=== PATIENT | female | born 1945 | race Caucasian/White ===

== ENCOUNTER 2022-12-16 17:18 | Emergency (ER) | payer OTHER ==
--- OUTSIDE RECORDS SUMMARY | 2022-12-16 17:22 | XMS REPORT | Continuity of Care Document ---
:1945 Author Organization [facility] t Address [address] [place] [id number] Care Team Providers Name Role Phone [email or web address] Attending Clinician Unavailable Chad Lees Attending Clinician [email or web address] Admitting Clinician Unavailable Problems Condition Condition Condition Status Onset Resolution Last Treating Co mments Source Name Details Category Date Date Treatment Clinician Date Amnesia Amnesia Problem Active 2022-08-13 Me moria (finding) (finding) 13:47:31 l Active Teller Problem 08/13/2022 [facility] Neurology Mayes Cough Cough Problem Active 2022-08-13 Memor ia (finding) (finding) 13:47:31 l Active Jc Problem 08/13/2022 [facility] Neuro,[facility] Neurology Mayes Dementia Dementia Problem Active 2022-08-13 Memoria (disorder) (disorder) 13:47:31 l Active Teller Problem 08/13/2022 [facility] Neurology Mayes Hyperlipid Hyperlipi Problem Active 2022-08-13 Memoria emia demia 13:47:31 l (disorder) (disorder) He rmann Active Problem 08/13/2022 [facility] Neuro,[facility] Neurology Mayes Hypertensi Hypertens Problem Active 2022-08-13 Memoria ve tatiana 13:47:31 l disorder, disorder, Herm jamie systemic systemic arterial arterial (disorder) (disorder) Active Problem 08/13/2022 [facility] Ptosis of Ptosis of Problem Active 2022-08-13 Memoria eyelid eyelid 13:47:31 l (disorder) (disorder) He rmann Active Problem 08/13/2022 [facility] Neuro,[facility] Neurology Mayes Tremor Tremor Problem Active 2022-08-13 Mem oria (finding) (finding) 13:47:31 l Active Teller Problem 08/13/2022 [facility] Mayes Allergies, Adverse Reactions, Alerts Allergy Allergy Status Severity Reaction(s) Onset Inactive Treating Comm ents Source Name Type Date Date Clinician codeine codeine Active Oz Greene morphine morphine Active Memori a lamar RamirezTeller MSP-Zack MSP-Zack Active Memoria l Jc Social History Smoking Status Start Date Stop Date Source [facility]ations Ordered Filled Start Stop Current Ordering Indication Dosage Frequency Signature Comments Components Source Medication Medication Date Date Medication? Clinician (SIG) Name Name Aricept 10 Yes 10 mg = 1 Me moria mg oral 2-21 tab, PO, l tablet 20:53: Bedtime, # Calista nn 00 90 tab, 1 Refill(s), Pharmacy: [facility] #[id number], 157.48, cm, 04/05/22 14:42:00 [employer], Height, 82.727, kg, 04/05/22 14:42:00 [employer], Weight Aricept 10 2021-02 Yes 10 mg = 1 Me moria mg oral 1-21 tab, PO, l tablet 19:28: Bedtime, # Calista nn 00 30 tab, 4 Refill(s), Pharmacy: [facility] #[id number], 158.75, cm, 01/03/22 13:21:00 [employer], Height, 85, kg, 01/03/22 13:21:00 [employer], Weight Aricept 5 2021-02 Yes 5 mg = 1 Chris shola mg oral 0-05 tab, PO, l tablet 16:22: Bedtime, # Calista nn 00 30 tab, 3 Refill(s), Pharmacy: [facility] #[id number], 157.48, cm, 11/17/21 11:02:00 CDT, Height, 84.318, kg, 11/17/21 11:02:00 CDT, Weight levothyroxi Yes TAKE 1 Chris shola ne 75 mcg 8-17 TABLET (75 l (0.075 mg) 15:07: MCG TOTAL) H ermann oral tablet 00 BY MOUTH 1 (ONE) TIME EACH DAY WITH A GLASS OF WATER FOR THYROID hydrochloro Yes TAKE 1 Chris shola thiazide 25 8-17 TABLET BY l mg oral 15:07: MOUTH Teller tablet 00 EVERY DAY losartan Yes TAKE 1 Memoria 100 mg oral 8-17 TABLET l tablet 15:07: (100 MG Jc 00 TOTAL) BY MOUTH 1 (ONE) TIME EACH DAY rosuvastati Yes TAKE 1 Chris shola n 40 mg 8-17 TABLET BY l oral tablet 15:07: MOUTH AT rmann 00 BEDTIME FOR CHOLESTERO L Prevagen Yes 50 Memoria 8-17 microgram, l 15:07: PO, Daily, Jc 00 0 Refill(s) aspirin 81 Yes 324 mg = 4 M emoria mg oral 8-17 cap, PO, l capsule 15:07: Q4H, 0 Jc 00 Refill(s) Vitamin D3 Yes 0 Memoria 8-17 Refill(s) l 15:06: Teller 00 Centrum Yes PO, Daily, Chris shola Silver 8-17 0 l Women's 15:06: Refill(s) Calista nn 00 ezetimibe Yes 10 mg = 1 Mem oria 10 mg oral 8-17 tab, PO, l tablet 15:05: Daily, # Jc 00 30 tab, 0 Refill(s) montelukast Yes 10 mg = 1 M emoria 10 mg oral 8-17 tab, PO, l tablet 15:05: Bedtime, # Calista nn 00 90 tab, 0 Refill(s) pramipexole Yes 0.25 mg = M emoria 0.25 mg 8-17 1 tab, PO, l oral tablet 15:05: Bedtime, # Jc 00 60 tab, 3 Refill(s) vitamin E Yes PO, Daily, Me moria 8-17 0 l 15:05: Refill(s) Jc 00 Vital Signs Vital Name Observation Time Observation Value Comments Source Systolic (mm Hg) 2022-08-10 18:57:00 Chris rial Jc Diastolic (mm Hg) 2022-08-10 18:57:00 Mem orial Teller Heart Rate 2022-08-10 18:57:00 [facility] Height 2022-08-10 18:57:00 5 [ft_i] Memorial Jc Weight 2022-08-10 18:57:00 Memorial Teller BMI Calculated 2022-08-10 18:57:00 Memori al Jc Systolic (mm Hg) 2022-04-05 20:35:00 Chirs rial Teller Diastolic (mm Hg) 2022-04-05 20:35:00 Mem orial Teller Heart Rate 2022-04-05 20:35:00 Memorial Jc Height 2022-04-05 20:35:00 5 [ft_i] Memorial Teller Weight 2022-04-05 20:35:00 Memorial Jc BMI Calculated 2022-04-05 20:35:00 Memori al Teller Systolic (mm Hg) 2022-01-03 19:14:00 Chris rial Jc Diastolic (mm Hg) 2022-01-03 19:14:00 Mem orial Teller Heart Rate 2022-01-03 19:14:00 Memorial Teller Height 2022-01-03 19:14:00 5 [ft_i] Memorial Jc Weight 2022-01-03 19:14:00 Memorial Teller BMI Calculated 2022-01-03 19:14:00 Memori al Teller Systolic (mm Hg) 2021-11-17 15:42:00 Chris rial Jc Diastolic (mm Hg) 2021-11-17 15:42:00 Mem orial Jc Heart Rate 2021-11-17 15:42:00 Memorial Teller Respitory Rate 2021-11-17 15:42:00 Memori al Teller Height 2021-11-17 15:42:00 157.48 cm Memorial Jc Weight 2021-11-17 15:42:00 Memorial Teller BMI Calculated 2021-11-17 15:42:00 Memori al Teller Systolic (mm Hg) 2021-09-29 14:58:00 Chris rial Teller Diastolic (mm Hg) 2021-09-29 14:58:00 Mem orial Jc Heart Rate 2021-09-29 14:58:00 Memorial Teller Respitory Rate 2021-09-29 14:58:00 Memori al Teller Height 2021-09-29 14:58:00 157.48 cm Memorial Jc Weight 2021-09-29 14:58:00 [facility] BMI Calculated 2021-09-29 14:58:00 April Finch Procedures This patient has no known procedures. Encounters Start End Encounter Admission Attending Care Care Encounter Source Date/Time Date/Time Type Type Clinicians Facility Department ID 2023-01-25 2023-01-25 Outpatient MHIE MHIE [id number] Memoria 13:15:00 13:15:00 05 lamar Greene 2022-12-11 2022-12-11 Outpatient GC_GCBZW_Ka PRIV PRIV [id number] [facility] 00:00:00 00:00:00 diyala_S [id number] Medic al 2022-08-10 2022-08-11 Outpatient MHIE MNA [id number] Memoria 19:00:00 04:59:59 Neurology 04 lamar Ramirezann 2022-08-10 2022-08-10 Outpatient SACHIN LeesMISCHER MHMISCHER [id number] 14:00:00 23:59:59 Chad 04 Roel 2022-08-10 2022-08-10 Outpatient MHIE MHIE [id number] Memoria 14:00:00 14:00:00 04 lamar Greene 2022-04-05 2022-04-06 Outpatient MHIE MNA [id number] Memoria 20:15:00 05:59:59 Neurology 03 lamar Ramirezann 2022-04-05 2022-04-05 Outpatient SACHIN LeesMISCHER MHMISCHER [id number] 14:15:00 23:59:59 Chad 03 Roel 2022-04-05 2022-04-05 Outpatient MHIE MHIE [id number] Memoria 14:15:00 14:15:00 03 lamar Greene 2022-01-03 2022-01-04 Outpatient MHIE MNA [id number] Memoria 19:00:00 05:59:59 Neurology 02 lamar Hastings Jc 2022-01-03 2022-01-03 Outpatient Yoana MISCHER MHMISCHER [id number] 13:00:00 23:59:59 Chad 02 Roel 2022-01-03 2022-01-03 Outpatient MHIE MHIE [id number] Memoria 13:00:00 13:00:00 02 lamar Jc 2021-11-17 2021-11-18 Outpatient nullFlavo MNA [id number] Memoria 15:30:00 04:59:59 r Neurology 01 lamar Mayes Jc 2021-11-17 2021-11-[address] [facility] [id number] 10:30:00 23:59:59 Chad 01 Roel 2021-11-17 2021-11-17 Outpatient MHIE IE [id number] Memoria 10:30:00 10:30:00 01 lamar Jc 2021-09-29 2021-09-30 Outpatient nullFlavo MNA [id number] Memoria 14:30:00 04:59:59 r Neurology 00 lamar Darling Greene 2021-09-29 2021-09-[address] [facility] [id number] 09:30:00 23:59:59 Chad 00 Roel 2021-09-29 2021-09-29 Outpatient MHIE IE [id number] Memoria 09:30:00 09:30:00 00 lamar Greene Results Test Description Test Time Test Comments Results Result Comments Source ANEMIA STUDY 2021-11-17 19:35:00 Test Item Value Reference Range Interpretation Comme nts Vitamin B12 Lvl (test code = Vitamin B12 Lvl) [id number] [id number] 19:35:00 Test Item Value Reference Range Interpretation Comments Sed Rate (test code = Sed Rate) 14 [facility]
[2022-12-16] MEDS ORDERED: ONDANSETRON 4 MG/2 ML VIAL ONE (18:12)
[2022-12-16] MEDS ORDERED: NA CHLORIDE 0.9% 500 ML ONE (18:13)
[2022-12-16 18:18] LABS: Absolute Lymphocytes (CBC) 0.6 K/uL (0.7-4.9); Hematocrit 47.1 % (36.0-45.0); Lymphocytes % 4.2 % (15.3-44.8); MCV 92.2 fL (80-100); MPV 8.5 fL (7.6-11.3); Platelets 227 thou/uL (152-406); RBC Red Blood Cell Count 5.11 M/uL (3.86-4.86)
--- NOTE | 2022-12-16 18:22 | RAD REPORT ---
EXAM DESCRIPTION: Alvarez Single View12/16/2022 6:10 pm CLINICAL HISTORY: Cough COMPARISON: none FINDINGS: Marked scoliosis. The lungs appear clear of acute infiltrate. The heart may be borderline enlarged IMPRESSION: No acute abnormalities displayed
[2022-12-16 18:34] LABS: Albumin 3.7 g/dL (3.4-5.0); Bilirubin Total 0.8 mg/dL (0.2-1.0); Potassium 3.7 mEq/L (3.5-5.1); Protein, Total 8.2 g/dL (6.4-8.2); Troponin High Sensitivity 9.3 pg/mL (<58.9)
--- NOTE | 2022-12-16 20:35 | EDPHYS ---
Physician Documentation [facility] Name: Naz Llanos Age: 77 yrs Sex: Female : 1945 Arrival Date: 12/16/2022 Time: 17:18 Bed 14 Private MD: ED Physician Darline Russo HPI: 12/16 17:33 This 77 yrs old Female presents to ER via Unassigned with complaints of nausea and cp3 vomiting, medication reaction. 17:33 Patient is a 77-year-old female who presents to the ED secondary to nausea and vomiting cp3 after mixing up some of her medications around the same bile. Patient unsure which medicine she took but since this afternoon patient does have 5-6 episodes of nausea vomiting. Patient denies fever, chills, chest pain, shortness of breath. Historical: - Allergies: 17:58 Codeine; hb 17:58 Morphine; hb 17:58 EpiPen; hb - Immunization history:: Adult Immunizations unknown. - Social history:: Smoking status: unknown. ROS: 17:33 Constitutional: Negative for fever, chills, and weight loss, Eyes: Negative for injury, cp3 pain, redness, and discharge, ENT: Negative for injury, pain, and discharge, Neck: Negative for injury, pain, and swelling, Cardiovascular: Negative for chest pain, palpitations, and edema, Respiratory: Negative for shortness of breath, cough, wheezing, and pleuritic chest pain, Back: Negative for injury and pain, : Negative for injury, bleeding, discharge, and swelling, MS/Extremity: Negative for injury and deformity, Skin: Negative for injury, rash, and discoloration, Neuro: Negative for headache, weakness, numbness, tingling, and seizure, Psych: Negative for depression, anxiety, suicide ideation, homicidal ideation, and hallucinations, Allergy/Immunology: Negative for hives, rash, and allergies, Endocrine: Negative for neck swelling, polydipsia, polyuria, polyphagia, and marked weight changes, Hematologic/Lymphatic: Negative for swollen nodes, abnormal bleeding, and unusual bruising, 17:33 Abdomen/GI: Positive for nausea and vomiting, Exam: 17:33 Constitutional: This is a well developed, well nourished patient who is awake, alert, cp3 and in no acute distress. Head/Face: Normocephalic, atraumatic. Eyes: Pupils equal round and reactive to light, extra-ocular motions intact. Lids and lashes normal. Conjunctiva and sclera are non-icteric and not injected. Cornea within normal limits. Periorbital areas with no swelling, redness, or edema. ENT: Nares patent. No nasal discharge, no septal abnormalities noted. Tympanic membranes are normal and external auditory canals are clear. Oropharynx with no redness, swelling, or masses, exudates, or evidence of obstruction, uvula midline. Mucous membranes moist. Neck: Trachea midline, no thyromegaly or masses palpated, and no cervical lymphadenopathy. Supple, full range of motion without nuchal rigidity, or vertebral point tenderness. No Meningismus. Chest/axilla: Normal chest wall appearance and motion. Nontender with no deformity. No lesions are appreciated. Cardiovascular: Regular rate and rhythm with a normal S1 and S2. No gallops, murmurs, or rubs. Normal PMI, no JVD. No pulse deficits. Respiratory: Lungs have equal breath sounds bilaterally, clear to auscultation and percussion. No rales, rhonchi or wheezes noted. No increased work of breathing, no retractions or nasal flaring. Abdomen/GI: Soft, non-tender, with normal bowel sounds. No distension or tympany. No guarding or rebound. No evidence of tenderness throughout. Back: No spinal tenderness. No costovertebral tenderness. Full range of motion. Skin: Warm, dry with normal turgor. Normal color with no rashes, no lesions, and no evidence of cellulitis. MS/ Extremity: Pulses equal, no cyanosis. Neurovascular intact. Full, normal range of motion. Neuro: Awake and alert, GCS 15, oriented to person, place, time, and situation. Cranial nerves II-XII grossly intact. Motor strength 5/5 in all extremities. Sensory grossly intact. Cerebellar exam normal. Normal gait. Psych: Awake, alert, with orientation to person, place and time. Behavior, mood, and affect are within normal limits. Vital Signs: 17:55 BP 174 / 88; Pulse 96; Resp 18; Temp 98.9(O); Pulse Ox 98% on R/A; Weight 81.65 kg; hb Height 5 ft. 1 in. ; Pain 8/10; 18:00 BP 180 / 87; Pulse 92; Resp 18; Pulse Ox 96% on 2 lpm NC; db 18:30 BP 185 / 86; Pulse 90; Resp 16; Pulse Ox 96% on 2 lpm NC; db 19:00 BP 166 / 93; Pulse 96; Resp 20; Pulse Ox 95% on 2 lpm NC; km8 20:05 BP 159 / 84; Pulse 99; Resp 22; Pulse Ox 92% on R/A; km8 20:30 BP 146 / 78; Pulse 96; Resp 20; Pulse Ox 93% on R/A; km8 17:55 Body Mass Index 34.01 (81.65 kg, 154.94 cm) hb 17:55 Pain Scale: Adult hb MDM: 17:28 Patient medically screened. [facility] 12/16 17:40 Order name: CBC with Diff [facility] 12/16 20:14 Interpretation: Normal except: WBC 13.30; RBC 5.11; HGB 15.9; HCT 47.1; MCV 92.2; MCH cp3 31.1; MCHC 33.7; PLT 227; RDW 13.9; MPV 8.5; SAUL% 92.8; LYM% 4.2; MN% 2.5; EOSINOPHIL % 0.1; BASO% 0.4; NEUT A 12.3; LYMA 0.6; MNA 0.3; EOSA 0.0; BASOA 0.0. 12/16 17:40 Order name: CMP; Complete Time: 20:11 [facility] 12/16 20:15 Interpretation: NA 138; K 3.7; CL 104; CO2 28; ANION GAP 9.7; GLUC 152; BUN 16; CRE cp3 1.05; GFR 54; AST 30; ALT 27; ALK 80; BILIT 0.8; CA 9.6; TP 8.2; ALB 3.7; GLOB 4.5; A/G 0.8. 12/16 17:40 Order name: Lipase; Complete Time: 20:11 [facility] 12/16 20:15 Interpretation: LIP 30. [facility] 12/16 17:40 Order name: Basic Metabolic Panel [facility] 12/16 17:40 Order name: Troponin HS; Complete Time: 20:11 [facility] 12/16 20:15 Interpretation: Troponin HS 9.3. [facility] 12/16 17:40 Order name: XRAY Chest (1 view); Complete Time: 18:27 3 12/16 17:40 Order name: EKG; Complete Time: 17:41 3 12/16 17:40 Order name: IV Saline Lock; Complete Time: 18:17 3 12/16 17:40 Order name: Labs collected and sent; Complete Time: 18:17 cp3 12/16 17:40 Order name: Cardiac monitoring; Complete Time: 18:17 3 12/16 17:40 Order name: EKG - Nurse/Tech; Complete Time: 18:52 3 12/16 17:40 Order name: O2 Per Protocol; Complete Time: 18:17 cp3 12/16 17:40 Order name: O2 Sat Monitoring; Complete Time: 18:17 3 Administered Medications: 08:10 Drug: Ondansetron IVP 4 mg IVP once; over 2 minutes Route: IVP; Site: left antecubital; db 20:14 Follow up: Response: No adverse reaction [facility] 18:10 Drug: NS 0.9% IV 500 ml IV at bolus once Route: IV; Rate: bolus; Site: left antecubital;db 20:14 Follow up: IV Status: Completed infusion; IV Intake: 500ml 8 Disposition Summary: 12/16/22 20:34 Discharge Ordered Notes: Location: Home cp3 Condition: Stable cp3 Diagnosis - Nausea with vomiting, unspecified cp3 Followup: cp3 - With: Orestes Miramontes DO - When: - Reason: Recheck today's complaints Discharge Instructions: - Discharge Summary Sheet cp3 - Nausea, Adult cp3 Forms: - Medication Reconciliation Form cp3 - Thank You Letter cp3 - Antibiotic Education cp3 - Prescription Opioid Use cp3 - Patient Portal Instructions cp3 - Leadership Thank You Letter cp3 Prescriptions: - Zofran 4 mg Oral Tablet - take 1 tablet ORAL route every 12 hours As needed; 20 tablet; Refills: 0, cp3 Product Selection Permitted Signatures: Dispatcher [employer] Darline Nobles MD MD 3 Gia Ash, RN RN Alisa Yañez, RN RN Rakel Fernández RN RN km8
--- NOTE | 2022-12-16 20:35 | ER ---
Nurse's Notes [facility] Name: Naz Llanos Age: 77 yrs Sex: Female : 1945 Arrival Date: 12/16/2022 Time: 17:18 Bed 14 Private MD: Diagnosis: Nausea with vomiting, unspecified Presentation: 12/16 17:55 Chief complaint: EMS states: reports she accidentally took her AM and PM meds hb this morning, then had N/V all day. SBP 180, HR 90s, T98.8. NSR w/RBB on 12 lead, 20 LAC. Coronavirus screen: At this time, the client does not indicate any symptoms associated with coronavirus-19. Ebola Screen: No symptoms or risks identified at this time. Initial Sepsis Screen: Does the patient meet any 2 criteria? No. Patient's initial sepsis screen is negative. Does the patient have a suspected source of infection? No. Patient's initial sepsis screen is negative. Risk Assessment: Do you want to hurt yourself or someone else? Patient reports no desire to harm self or others. Onset of symptoms was December 16, 2022. 17:55 Method Of Arrival: [facility] hb 17:55 Acuity: SHENG 3 hb Triage Assessment: 18:00 General: Appears in no apparent distress. comfortable, Behavior is cooperative, drowsy. db 18:00 Neuro: Level of Consciousness is awake, obeys commands, Oriented to person, place, db time, situation. Respiratory: Airway is patent Respiratory effort is even, unlabored, Respiratory pattern is regular, symmetrical. Historical: - Allergies: 17:58 Codeine; hb 17:58 Morphine; hb 17:58 EpiPen; hb - Immunization history:: Adult Immunizations unknown. - Social history:: Smoking status: unknown. Screenin:15 [facility] ED Fall Risk Assessment (Adult) History of falling in the last 3 months, db including since admission Yes- single mechanical fall (1 pt) Confusion or Disorientation No (0 pts) Intoxicated or Sedated Yes (3 pts) Impaired Gait No (0 pts) Mobility Assist Device Used No (0 pt) Altered Elimination No (0 pt) Score/Fall Risk Level 3 or more points = High Risk Oriented to surroundings, Maintained a safe environment. Abuse screen: Denies threats or abuse. Denies injuries from another. Nutritional screening: No deficits noted. Tuberculosis screening: No symptoms or risk factors identified. Assessment: 18:00 Reassessment: Patient appears in no apparent distress at this time. Patient and/or db family updated on plan of care and expected duration. Pain level reassessed. Patient is alert, oriented x 3, equal unlabored respirations, skin warm/dry/pink. PATIENT PLACED ON NC 2L. WHEN RELAXING PT O2 DROPPED TO 88% ON RA. Pain: Denies pain. Pain: Denies pain. 18:55 Reassessment: Patient appears in no apparent distress at this time. Patient and/or db family updated on plan of care and expected duration. Pain level reassessed. Patient is alert, oriented x 3, equal unlabored respirations, skin warm/dry/pink. General: Appears in no apparent distress. comfortable, Behavior is calm, cooperative. Neuro: Level of Consciousness is awake, obeys commands, Oriented to person, place, time, situation. Respiratory: Airway is patent Respiratory effort is even, unlabored, Respiratory pattern is regular, symmetrical. 19:13 Reassessment: Patient appears in no apparent distress at this time. No changes from [facility] previously documented assessment. Patient and/or family updated on plan of care and expected duration. Pain level reassessed. Patient is alert, oriented x 3, equal unlabored respirations, skin warm/dry/pink. 20:12 Reassessment: Patient appears in no apparent distress at this time. while calling km report on another pt; this pt took all monitors and IV's out on own in order to get out of bed and go to the bathroom; pt has bleeding controlled at IV site; pt helped back to bed after using bathroom; MD notified. 20:40 Reassessment: Patient appears in no apparent distress at this time. Patient and/or km8 family updated on plan of care and expected duration. Pain level reassessed. Patient is alert, oriented x 3, equal unlabored respirations, skin warm/dry/pink. Vital Signs: 17:55 BP 174 / 88; Pulse 96; Resp 18; Temp 98.9(O); Pulse Ox 98% on R/A; Weight 81.65 kg; hb Height 5 ft. 1 in. ; Pain 8/10; 18:00 BP 180 / 87; Pulse 92; Resp 18; Pulse Ox 96% on 2 lpm NC; db 18:30 BP 185 / 86; Pulse 90; Resp 16; Pulse Ox 96% on 2 lpm NC; db 19:00 BP 166 / 93; Pulse 96; Resp 20; Pulse Ox 95% on 2 lpm NC; km8 20:05 BP 159 / 84; Pulse 99; Resp 22; Pulse Ox 92% on R/A; km8 20:30 BP 146 / 78; Pulse 96; Resp 20; Pulse Ox 93% on R/A; km8 17:55 Body Mass Index 34.01 (81.65 kg, 154.94 cm) hb 17:55 Pain Scale: Adult hb ED Course: 17:27 Patient arrived in ED. eb 17:28 Darline Russo MD is Attending Physician. cp3 17:53 Alisa Quigley, RN is Primary Nurse. db 17:58 Triage completed. hb 18:00 Arm band placed on Patient placed in an exam room. db 18:12 XRAY Chest (1 view) In Process Unspecified. EDMS 18:15 Maintain EMS IV. Dressing intact. Good blood return noted. Site clean \T\ dry. Gauge \T\ db site: 20 G L AC. 18:56 Patient has correct armband on for positive identification. Bed in low position. Call db light in reach. Side rails up X 1. Client placed on continuous cardiac and pulse oximetry monitoring. NIBP monitoring applied. Warm blanket given. 19:12 Rakel Waters, RN is Primary Nurse. km8 20:15 IV discontinued, intact, bleeding controlled, No redness/swelling at site. km8 20:17 Provided Education on: d/c teaching. km8 20:17 No provider procedures requiring assistance completed. km8 20:34 Orestes Miramontes DO is Referral Physician. cp3 Administered Medications: 08:10 Drug: Ondansetron IVP 4 mg IVP once; over 2 minutes Route: IVP; Site: left antecubital; db 20:14 Follow up: Response: No adverse reaction km8 18:10 Drug: NS 0.9% IV 500 ml IV at bolus once Route: IV; Rate: bolus; Site: left antecubital;db 20:14 Follow up: IV Status: Completed infusion; IV Intake: 500ml km8 Medication: 20:17 VIS not applicable for this client. km8 Intake: 20:14 IV: 500ml; Total: 500ml. km8 Outcome: 20:34 Discharge ordered by . cp3 20:55 Discharged to home via wheelchair, with family, km8 20:55 Condition: good 20:55 Discharge instructions given to patient, family, Instructed on discharge instructions, follow up and referral plans. medication usage, Demonstrated understanding of instructions, follow-up care, medications, Prescriptions given X 1, 20:56 Patient left the ED. km8 Signatures: Dispatcher [employer] Darline Nobles MD MD cp3 Gia Ash, RN RN Judith Espinosa Danielle, RN RN Rakel Fernández RN RN km8
[2022-12-16 21:04] LABS: Blood Morphology Comment NOT SEEN (NOT SEEN); Platelet Estimate ADEQ; White Blood Cell Scan OK (OK)
[2022-12-16 21:25] VITALS: TEMP 98.9
[2022-12-16 21:34] VITALS: BP 146/78; O2SAT 93
== END 2022-12-16 20:56 | disposition home or self-care (01) ==
LOC: ER 17:18
DX: R11.2 Nausea with vomiting, unspecified (principal); Z88.5 Allergy status to narcotic agent; Z88.8 Allergy status to other drugs, medicaments and biological substances
CPT/HCPCS: 96361; 93005; 85025; 36415; 84484; 83690; 80053; 71045; 96374; 99284; J2405; J7040

== ENCOUNTER 2024-07-06 11:15 | Emergency (ER) | payer OTHER ==
--- OUTSIDE RECORDS SUMMARY | 2024-07-06 11:19 | XMS REPORT | Continuity of Care Document ---
Author Name Unknown Address [address] [place] [address] [facility] [place] Address [address] [place] [address] Care Team Providers Care Site Damage Prevention Technician Name Role Phone Eunice Spangler Primary Care Physi candis Tavo Carver MD Attending Clinician TAVO CARVER Attending Clinician Unavail able GC_GCBZW_Kadiyala_S Attending Clinician Unavaila ble GC_GCBZW_Kadiyala_S Admitting Clinician Unavaila ble Payers Payer Name Policy Type Policy Number Effective Date Expirati on Date Source [employer] MEDICARE ADVANTAGE Medicare [id number] 2023 00:00:00 Problems Condition Name Condition Details Condition Category Status Onset Date Resolution Date Last Treatment Date Treating Clinician Comments Source Ankle edema Ankle edema Disease Active 11-06 00:00: 00 Oz Alberto Stage 3b chronic kidney disease Stage 3b chronic kidney disease Disease Active 08-28 00:00: 00 Oz Alberto 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 Active 08-28 00:00: 00 Oz Alberto Cervical spondylosi s Cervical spondylosi s Disease Active 08-09 00:00: 00 Oz Alberto Dementia Dementia Disease Active 08-09 00:00: 00 Oz Alberto HLD (hyperlipi demia) HLD (hyperlipi demia) Disease Active 08-09 00:00: 00 Oz Alberto HTN (hypertens ion) HTN (hypertens ion) Disease Active 08-09 00:00: 00 Oz Alberto Memory loss Memory loss Disease Active 08-09 00:00: 00 Oz Alberto Tremor Tremor Disease Active 08-09 00:00: 00 Oz Alberto Ptosis of eyelid Ptosis of eyelid Disease Active 08-09 00:00: 00 Oz Alberto Thoracogen ic scoliosis of thoracolum bar region Thoracogen ic scoliosis of thoracolum bar region Disease Active 2022-02 2 00:00: 00 Oz Alberto Scoliosis deformity of spine Scoliosis deformity of spine Disease Active 2022-02 00:00: 00 Oz Alberto Cerebrovas cular accident Cerebrovas cular accident Disease Active 2022-02 00:00: 00 Oz Alberto Fatigue Fatigue Disease Active 2022-02 00:00: 00 Oz Alberto Irregular heart beat Irregular heart beat Disease Active 2022-02 00:00: 00 Oz Alberto Hypothyroi dism Hypothyroi dism Disease Active 07-19 00:00: 00 Oz Alberto Menopausal and female climacteri c states Menopausal and female climacteri c states Disease Active 11-10 00:00: 00 Oz Alberto Person consulting for explanatio n of examinatio n or test findings Person consulting for explanatio n of examinatio n or test findings Disease Active 07-07 00:00: 00 Oz Alberto Prediabete s Prediabete s Disease Active 18 00:00: 00 Oz Alberto Neck pain Neck pain Disease Active 02-17 00:00: 00 Oz Alberto Generalize d Anxiety Disorder Generalize d Anxiety Disorder Disease Active 2019-02 0-05 00:00: 00 Oz Alberto Benign essential hypertensi on Benign essential hypertensi on Disease Active 2018-02 0-15 00:00: 00 Oz Alberto Obstructiv e sleep apnea syndrome Obstructiv e sleep apnea syndrome Disease Active 2018-02 015 00:00: 00 Memdanielle Alberto Other prison (current) drug therapy Other prison (current) drug therapy Disease Active 2018-02 0 00:00: 00 Memdanielle Alberto Cough Cough Disease Resolve d 08-09 00:00: 00 2023-08-10 00:00:00 2023-08-10 11:34:52 Memdanielle Alberto Allergies, Adverse Reactions, Alerts Allergy Name Allergy Type Status Severity Reaction(s) Onset Date Inactive Date Treating Clinician Comments Source CODEINE DRUG INGREDI Active 08-09 00:00: 00 MHEOUT EPINEPHR INE DRUG INGREDI Active 08-09 00:00: 00 MHEOUT MORPHINE DRUG INGREDI Active 08-09 00:00: 00 MHEOUT Epinephr ine Propensi ty to adverse reaction s Active 08-09 00:00: 00 Memdanielle Ramirezann Epic MORPHINE DRUG INGREDI Active Nau[place] 2018-02 0 00:00: 00 MHEOUT Sulfa Antibiot ics Drug Allergy Active Other 2018-02 0 00:00: 00 Memoria lamar Jc Epic SULFA ANTIBIOT ICS Drug Class Active Other 2018-02 0 00:00: 00 MHEOUT CODEINE DRUG INGREDI Active Nau[place] 2018-02 015 00:00: 00 MHEOUT HYDROCOD ONE DRUG INGREDI Active Nau[place] 2018-02 0 00:00: 00 MHEOUT Codeine Propensi ty to adverse reaction s Active Nausea Only, GI intolerance 2018-02 015 00:00: 00 Memoria lamar RamirezJc Epic Hydrocod one Propensi ty to adverse reaction s Active Nausea Only, GI intolerance 2018-02 0 00:00: 00 Memoria lamar RamirezJc Epic Morphine Propensi ty to adverse reaction s Active Nausea Only, GI intolerance 2018-02 015 00:00: 00 Memdanielle Greene Epic MSP-Zack MSP-Zack Active Memdanielle Greene codeine codeine Active Memdanielle Ramirezann morphine morphine Active Memdanielle Greene Social History Social Habit Start Date Stop Date Quantity Comments Source Gender identity 2023-05-06 23:28:17 Identifies as female gender (finding) [facility] Sexual orientation [facility] ASSERTION Possible [facility] Alcoholic beverage intake 2024-04-09 00:00:00 2024-04-09 00:00:00 Lifetime non-drinker (finding) [facility] History of Social function 2024-04-09 00:00:00 2024-04-09 00:00:00 [facility] Tobacco use and exposure 2023-08-10 00:00:00 2023-08-10 00:00:00 Smokeless tobacco non-user [facility] Smoking Status Start Date Stop Date Source Never smoked tobacco [facility] Medications Ordered Medication Name Filled Medication Name Start Date Stop Date Current Medication? Ordering Clinician Indication Dosage Frequency Signature (SIG) Comments Components Source memantine (Namenda) 5 MG tablet memantine (Namenda) 5 MG tablet 05-02 00:00: 00 Yes 5mg TAKE 1 TABLET BY MOUTH IN THE MORNING AND 1 TABLET IN THE EVENING [facility] memantine (Namenda) 5 MG tablet memantine (Namenda) 5 MG tablet 08-31 00:00: 00 05-02 00:00 :00 No 5mg Q.5D TAKE 1 TABLET BY MOUTH IN THE MORNING AND IN THE EVENING [facility] carvedilol (Coreg) 3.125 MG tablet carvedilol (Coreg) 3.125 MG tablet 08-09 11:50: 18 Yes 3.125mg QD Take 3.125 mg by mouth 1 time each day. [facility] calcium acetate (Phoslo) 667 MG capsule calcium acetate (Phoslo) 667 MG capsule 08-09 11:50: 18 Yes 50mg QD Take 50 mg by mouth 1 time each day. [facility] magnesium oxide (Mag-Ox) 250 MG tablet magnesium oxide (Mag-Ox) 250 MG tablet 08-09 11:50: 18 Yes 250mg QD Take 250 mg by mouth 1 time each day. [facility] donepezil (Aricept) 10 MG tablet donepezil (Aricept) 10 MG tablet 08-09 00:00: 00 08-09 23:59 :00 No 10mg Take 1 tablet by mouth at bedtime. Shaistadanielle lamar Jc Alberto memantine (Namenda) 5 MG tablet memantine (Namenda) 5 MG tablet 08-09 00:00: 00 08-31 00:00 :00 No 5mg Q.5D Take 1 tablet by mouth in the morning and 1 tablet in the evening. Shaistadanielle lamar Jc Alberto buPROPion XL (Wellbutrin XL) 150 MG 24 hr tablet buPROPion XL (Wellbutrin XL) 150 MG 24 hr tablet 4-13 00:00: 00 Yes 150mg Take 150 mg by mouth every morning. Shaistadanielle lamar Jc Alberto FLUoxetine (PROzac) 20 MG capsule FLUoxetine (PROzac) 20 MG capsule 3- 00:00: 00 Yes 20mg QD Take 20 mg by mouth 1 time each day. Shaistadanielle lamar Jc Alberto donepezil (Aricept) 10 MG tablet donepezil (Aricept) 10 MG tablet 2022-02 00:00: 00 08-09 00:00 :00 No = 1 tab, PO, Bedtime, # 90 tab, 1 Refill(s), Pharmacy: [id number], 154.94, cm, 01/25/23 13:59:00 [employer]ATE[employer]IST, Height, 78.182, kg, 01/25/23 13:59:00 [employer]AT[employer] AFFAIRS STRATEGY SPECIALIST, Weight Shaistadanielle Alberto amLODIPine (Norvasc) 2.5 MG tablet amLODIPine (Norvasc) 2.5 MG tablet 2022-02 00:00: 00 Yes 2.5mg QD Take 2.5 mg by mouth 1 time each day. for blood pressure Oz Alberto Aricept 10 mg oral tablet 04-05 20:53: 00 Yes 10 mg = 1 tab, PO, Bedtime, # 90 tab, 1 Refill(s), Pharmacy: [facility] #[id number], 157.48, cm, 04/05/22 14:42:00 REGULATORY AFFAIRS STRATEGY SPECIALIST, Height, 82.727, kg, 04/05/22 14:42:00 REGULATORY AFFAIRS STRATEGY SPECIALIST, Weight Shaistadanielle Greene Aricept 10 mg oral tablet 2021-02 1- 19:28: 00 Yes 10 mg = 1 tab, PO, Bedtime, # 30 tab, 4 Refill(s), Pharmacy: [facility] #[id number], 158.75, cm, 01/03/22 13:21:00 REGULATORY AFFAIRS STRATEGY SPECIALIST, Height, 85, kg, 01/03/22 13:21:00 REGULATORY AFFAIRS STRATEGY SPECIALIST, Weight Oz Ramirezann Aricept 5 mg oral tablet 2021-02 16:22: 00 Yes 5 mg = 1 tab, PO, Bedtime, # 30 tab, 3 Refill(s), Pharmacy: [facility] #[id number], 157.48, cm, 11/17/21 11:02:00 CDT, Height, 84.318, kg, 11/17/21 11:02:00 CDT, Weight Oz newton Jc levothyroxi ne 75 mcg (0.075 mg) oral tablet 09-29 15:07: 00 Yes TAKE 1 TABLET (75 MCG TOTAL) BY MOUTH 1 (ONE) TIME EACH DAY WITH A GLASS OF WATER FOR THYROID Oz Greene hydrochloro thiazide 25 mg oral tablet 09-29 15:07: 00 Yes TAKE 1 TABLET BY MOUTH EVERY DAY Shaistadanielle lamar Greene losartan 100 mg oral tablet 09-29 15:07: 00 Yes TAKE 1 TABLET (100 MG TOTAL) BY MOUTH 1 (ONE) TIME EACH DAY Oz Greene rosuvastati n 40 mg oral tablet 09-29 15:07: 00 Yes TAKE 1 TABLET BY MOUTH AT BEDTIME FOR CHOLESTERO L Oz Greene Prevagen 09-29 15:07: 00 Yes 50 microgram, PO, Daily, 0 Refill(s) Oz Greene aspirin 81 mg oral capsule 09-29 15:07: 00 Yes 324 mg = 4 cap, PO, Q4H, 0 Refill(s) Oz Greene Vitamin D3 09-29 15:06: 00 Yes 0 Refill(s) Oz Greene Centrum Silver Women's 09-29 15:06: 00 Yes PO, Daily, 0 Refill(s) Oz Greene ezetimibe 10 mg oral tablet 09-29 15:05: 00 Yes 10 mg = 1 tab, PO, Daily, # 30 tab, 0 Refill(s) Oz Greene montelukast 10 mg oral tablet 09-29 15:05: 00 Yes 10 mg = 1 tab, PO, Bedtime, # 90 tab, 0 Refill(s) Oz Greene pramipexole 0.25 mg oral tablet 09-29 15:05: 00 Yes 0.25 mg = 1 tab, PO, Bedtime, # 60 tab, 3 Refill(s) Oz Greene vitamin E 09-29 15:05: 00 Yes PO, Daily, 0 Refill(s) Oz Greene levothyroxi ne (Synthroid, Levoxyl) 75 MCG tablet levothyroxi ne (Synthroid, Levoxyl) 75 MCG tablet 09-29 00:00: 00 Yes TAKE 1 TABLET (75 MCG TOTAL) BY MOUTH 1 (ONE) TIME EACH DAY WITH A GLASS OF WATER FOR THYROID Oz Greene [facility] hydroCHLORO thiazide (HYDRODiuri l) 25 MG tablet hydroCHLORO thiazide (HYDRODiuri l) 25 MG tablet 09-29 00:00: 00 Yes TAKE 1 TABLET BY MOUTH EVERY DAY Oz Alberto losartan (Cozaar) 100 MG tablet losartan (Cozaar) 100 MG tablet 09-29 00:00: 00 Yes TAKE 1 TABLET (100 MG TOTAL) BY MOUTH 1 (ONE) TIME EACH DAY Oz Greene [facility] ezetimibe (Zetia) 10 MG tablet ezetimibe (Zetia) 10 MG tablet 09-29 00:00: 00 Yes 10mg 10 mg = 1 tab, PO, Daily, # 30 tab, 0 Refill(s) Oz Greene [facility] montelukast (Singulair) 10 MG tablet montelukast (Singulair) 10 MG tablet 09-29 00:00: 00 Yes 10mg 10 mg = 1 tab, PO, Bedtime, # 90 tab, 0 Refill(s) Oz Alberto pramipexole (Mirapex) 0.25 MG tablet pramipexole (Mirapex) 0.25 MG tablet 09-29 00:00: 00 Yes .25mg 0.25 mg = 1 tab, PO, Bedtime, # 60 tab, 3 Refill(s) Oz Greene [facility] rosuvastati n (Crestor) 40 MG tablet rosuvastati n (Crestor) 40 MG tablet 09-29 00:00: 00 Yes TAKE 1 TABLET BY MOUTH AT BEDTIME FOR NAKITA Newton Oz Greene [facility] aspirin (Vazalore) 81 MG capsule aspirin (Vazalore) 81 MG capsule 09-29 00:00: 00 Yes 324mg 324 mg = 4 cap, PO, Q4H, 0 Refill(s) Oz Greene [facility] alpha tocopherol (Vitamin E) 400 units capsule alpha tocopherol (Vitamin E) 400 units capsule 09-29 00:00: 00 Yes 400U QD Take 400 Units by mouth 1 time each day. Oz Greene [facility] Cholecalcif murali (Vitamin D3) 50 MCG capsule Cholecalcif murali (Vitamin D3) 50 MCG capsule 09-29 00:00: 00 Yes 0 Refill(s) Oz Greene [facility] Multiple Vitamins-Mi nerals (CENTRUM SILVER ULTRA WOMENS PO) Multiple Vitamins-Mi nerals (CENTRUM SILVER ULTRA WOMENS PO) 09-29 00:00: 00 Yes PO, Daily, 0 Refill(s) Oz Greene [facility] Vital Signs Vital Name Observation Time Observation Value Comments S ource Systolic blood pressure 2024-04-09 11:52:00 121 mm[Hg] [facility] Diastolic blood pressure 2024-04-09 11:52:00 61 mm[Hg] [facility] Heart rate 2024-04-09 11:52:00 64 /min [facility] Body temperature 2024-04-09 11:52:00 36.5 [facility] Respiratory rate 2024-04-09 11:52:00 16 /min [facility] Body height 2024-04-09 11:52:00 160 cm [facility] Body weight 2024-04-09 11:52:00 89.359 kg [facility] BMI 2024-04-09 11:52:00 34.90 kg/m2 [facility] Oxygen saturation in Arterial blood by Pulse oximetry 2024-04-09 11:52:00 94 /min [facility] Epic Systolic blood pressure 2024-04-09 11:52:00 121 mm[Hg] [facility] Epic Diastolic blood pressure 2024-04-09 11:52:00 61 mm[Hg] [facility] Epic Heart rate 2024-04-09 11:52:00 64 /min [facility] [place] Epic Body temperature 2024-04-09 11:52:00 36.5 [facility] Epic Respiratory rate 2024-04-09 11:52:00 16 /min [facility] Body height 2024-04-09 11:52:00 160 cm Chris rial [place] Epic Body weight 2024-04-09 11:52:00 89.359 kg Chris rial [place] Epic BMI 2024-04-09 11:52:00 34.90 kg/m2 Chris rial [place] Epic Oxygen saturation in Arterial blood by Pulse oximetry 2024-04-09 11:52:00 94 /min [facility] Epic Systolic blood pressure 2023-12-07 11:28:00 124 mm[Hg] [facility] Diastolic blood pressure 2023-12-07 11:28:00 63 mm[Hg] [facility] Epic Heart rate 2023-12-07 11:28:00 61 /min [facility] Epic Body temperature 2023-12-07 11:28:00 36.28 [facility] Respiratory rate 2023-12-07 11:28:00 16 /min [facility] Epic Body height 2023-12-07 11:28:00 160 cm Chris rial [place] Epic Body weight 2023-12-07 11:28:00 84.913 kg Chris rial Jc Epic BMI 2023-12-07 11:28:00 33.16 kg/m2 Chris rial Jc Epic Oxygen saturation in Arterial blood by Pulse oximetry 2023-12-07 11:28:00 96 /min [facility] Epic Systolic blood pressure 2023-12-07 11:28:00 124 mm[Hg] [facility] Epic Diastolic blood pressure 2023-12-07 11:28:00 63 mm[Hg] [facility] Epic Heart rate 2023-12-07 11:28:00 61 /min [facility] Epic Body temperature 2023-12-07 11:28:00 36.28 [facility] Respiratory rate 2023-12-07 11:28:00 16 /min [facility] Body height 2023-12-07 11:28:00 160 cm Chris calloway [facility] Body weight 2023-12-07 11:28:00 84.913 kg Chris brodie [facility] BMI 2023-12-07 11:28:00 33.16 kg/m2 Chris rial Jc Epic Oxygen saturation in Arterial blood by Pulse oximetry 2023-12-07 11:28:00 96 /min [facility] Systolic blood pressure 2023-08-10 11:53:00 122 mm[Hg] [facility] Diastolic blood pressure 2023-08-10 11:53:00 67 mm[Hg] [facility] Heart rate 2023-08-10 11:53:00 70 /min [facility] Epic Body temperature 2023-08-10 11:53:00 36.22 [facility] Respiratory rate 2023-08-10 11:53:00 16 /min [facility] Body height 2023-08-10 11:53:00 161.3 cm Chris brodie [facility] Body weight 2023-08-10 11:53:00 83.915 [facility] 2023-08-10 11:53:00 32.26 kg/m2 Chris rial [place] Epic Oxygen saturation in Arterial blood by Pulse oximetry 2023-08-10 11:53:00 97 /min [facility] Systolic blood pressure 2023-08-10 11:53:00 122 mm[Hg] [facility] Diastolic blood pressure 2023-08-10 11:53:00 67 mm[Hg] [facility] Heart rate 2023-08-10 11:53:00 70 /min [facility] [place] Epic Body temperature 2023-08-10 11:53:00 36.22 [facility] Epic Respiratory rate 2023-08-10 11:53:00 16 /min [facility] Body height 2023-08-10 11:53:00 161.3 cm Chris rial [facility] Body weight 2023-08-10 11:53:00 83.915 kg Chris ria Jc Epic BMI 2023-08-10 11:53:00 32.26 kg/m2 Chris [facility] Epic Oxygen saturation in Arterial blood by Pulse oximetry 2023-08-10 11:53:00 97 /min [facility] Epic Systolic (mm Hg) 2022-08-10 18:57:00 [facility] Diastolic (mm Hg) 2022-08-10 18:57:00 [facility] Heart Rate 2022-08-10 18:57:00 [facility] Height 2022-08-10 18:57:00 5 [ft_i] [facility] Weight 2022-08-10 18:57:00 [facility] BMI Calculated 2022-08-10 18:57:00 [facility] Systolic (mm Hg) 2022-04-05 20:35:00 [facility] Diastolic (mm Hg) 2022-04-05 20:35:00 [facility] [place] Heart Rate 2022-04-05 20:35:00 [facility] Height 2022-04-05 20:35:00 5 [ft_i] [facility] Weight 2022-04-05 20:35:00 [facility] [place] BMI Calculated 2022-04-05 20:35:00 [facility] Systolic (mm Hg) 2022-01-03 19:14:00 [facility] [place] Diastolic (mm Hg) 2022-01-03 19:14:00 [facility] Heart Rate 2022-01-03 19:14:00 [facility] Height 2022-01-03 19:14:00 5 [ft_i] [facility] [place] Weight 2022-01-03 19:14:00 [facility] BMI Calculated 2022-01-03 19:14:00 [facility] [place] Systolic (mm Hg) 2021-11-17 15:42:00 [facility] [place] Diastolic (mm Hg) 2021-11-17 15:42:00 [facility] Heart Rate 2021-11-17 15:42:00 [facility] [place] Respitory Rate 2021-11-17 15:42:00 [facility] [place] Height 2021-11-17 15:42:00 157.48 cm [facility] Weight 2021-11-17 15:42:00 [facility] BMI Calculated 2021-11-17 15:42:00 [facility] Systolic (mm Hg) 2021-09-29 14:58:00 [facility] Diastolic (mm Hg) 2021-09-29 14:58:00 [facility] [place] Heart Rate 2021-09-29 14:58:00 [facility] [place] Respitory Rate 2021-09-29 14:58:00 [facility] Height 2021-09-29 14:58:00 157.48 cm [facility] [place] Weight 2021-09-29 14:58:00 [facility] BMI Calculated 2021-09-29 14:58:00 [facility] Encounters Start Date/Time End Date/Time Encounter Type Admission Type Attending [facility] Care Department Encounter ID Source 2024-05-02 00:00:00 2024-05-02 17:41:53 Refill Tavo Carver [id number] Oz Greene [facility] 2024-04-09 11:30:00 2024-04-09 12:26:59 Office Visit Wen Tavokillian Hastings [id number] Oz Ramirezann [facility] 2024-04-09 11:10:24 2024-04-09 12:26:59 Outpatient WEN TAVO MHEOUT MHEOUT [id number] MHEOUT 2023-12-07 11:30:00 2023-12-07 11:55:16 Office Visit WenRenékillian [place] [id number] Oz Ramirezann [facility] 2023-12-07 11:09:56 2023-12-07 11:55:16 Outpatient TAVO CARVER MHEOUT MHEOUT [id number] MHEOUT 2023-09-01 00:00:00 2023-09-01 14:37:44 Refill Tavo Carver [place] [id number] Oz Greene [facility] 2023-08-10 11:37:42 2023-08-10 12:34:55 Outpatient TAVO CARVER MHEOUT MHEOUT [id number] MHEOUT 2023-08-10 11:30:00 2023-08-10 12:34:55 Office Visit Tavo Carver [place] [id number] Oz Greene [facility] 2023-01-25 13:15:00 2023-01-25 13:15:00 Outpatient MHIE MHIE [id number] Oz newton [place] 2022-12-11 00:00:00 2022-12-11 00:00:00 Outpatient GC_GCBZW_Ka diyala_S [facility] [id number] [facility] 2022-08-10 19:00:00 2022-08-11 04:59:59 Outpatient MHIE [facility] [id number] Oz newton [place] 2022-04-05 20:15:00 2022-04-06 05:59:59 Outpatient MHIE [facility] [id number] Oz newton [facility] 2022-01-03 19:00:00 2022-01-04 05:59:59 Outpatient MHIE [facility] [id number] Shaistadanielle newton [facility] 2021-11-17 15:30:00 2021-11-18 04:59:59 Outpatient nullFlavo r [facility] [place] [id number] Oz newton [facility] 2021-09-29 14:30:00 2021-09-30 04:59:59 Outpatient nullFlavo r [facility] [place] [id number] Shaistadanielle Ramirezann Results Test Description Test Time Test Comments Results Result Co [id number] 19:35:00* Test Item Value Reference Range Interpretation Comme nts Sed Rate (test code = Sed Rate) 14 [facility] Notes Date/Time Note Provider Source 2024-05-02 17:42:03 [facility]2025-03-20 17:42:03Upcoming Encounters Health Maintenance Due Date Last Done Comments Bone Density Scan 1945 Medicare Annual Wellness (AWV) 1945 DTaP/Tdap/Td Vaccines (1 - Tdap) 01/15/1964 Pneumococcal Vaccine: 50+ Years (1 of 1 - PCV) 01/15/1994 Zoster Vaccines (1 of 2) 01/15/1994 Respiratory Syncytial Virus (RSV) or >=60 (1 - 1-dose 75+ series) 01/15/2019 Influenza Vaccine (#1) 2023 Lipid Panel 08/04/2028 08/05/2023, 06/05/2023 HIB Vaccines Aged Out No longer eligi ble based on patient's age to complete this topic HPV Vaccines Aged Out No longer eligi ble based on patient's age to complete this topic Hepatitis A Vaccines Aged Out No long er eligible based on patient's age to complete this topic Hepatitis B Vaccines Aged Out No long er eligible based on patient's age to complete this topic IPV Vaccines Aged Out No longer eligi ble based on patient's age to complete this topic Meningococcal Vaccine Aged Out No arlyn iesha eligible based on patient's age to complete this topic Rotavirus Vaccines Aged Out No longer eligible based on patient's age to complete this topic [id number] 17:42:03 [facility]tz[facility]0766-22-16 13:03:22* 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 On Namenda, no side effects. Does have some knee pain as well. No behavioral problems. On Aricept and Namenda Allergies as of 04/09/2024 - Reviewed 04/09/2024 Allergen Reaction Noted Codeine Nausea Only and GI intolerance 11/27/2018 Epinephrine 08/10/2023 Hydrocodone Nausea Only and GI intolerance 11/27/2018 Morphine Nausea Only and GI intolerance 11/27/2018 Sulfa antibiotics Other 11/27/2018 has a current medication list which includes the following prescription(s): alpha tocopherol, amlodipine, aspirin, bupropion xl, calcium acetate, carvedilol, vitamin d3, donepezil, ezetimibe, fluoxetine, hydrochlorothiazide, levothyroxine, losartan, magnesium oxide, memantine, montelukast, multiple vitamins-minerals, pramipexole, and rosuvastatin. Vitals:04/09/24 1152 BP: 121/61 Pulse: 64 Resp: 16 Temp: 36.5 ?C (97.7 ?F) SpO2: 94% Neurological Exam Mental Status Awake and alert. Speech is normal. Not year, month, day. /6 pictures. Cranial NervesCN II: Visual acuity is normal. CN III, IV, : Extraocular movements intact bilaterally. Pupils equal round and reactive to light bilaterally. CN VII: Full and symmetric facial movement. CN XII: Tongue midline without atrophy or fasciculations. MotorStrength is 5/5 throughout all four extremities. SensoryLight touch is normal in upper and lower extremities. Temperature is normal in upper and lower extremities. Vibration is normal in upper and lower extremities. ReflexesDeep tendon reflexes: Symmetric. GaitCasual gait is normal including stance, stride, and arm swing. Results for orders placed or performed in visit on 11/17/21 Copper Level Collection Time: 11/17/21 2:35 PM Result Value Ref Range Copper Lvl 108 70 - 175 mcg/dl Sedimentation Rate Collection Time: 11/17/21 2:35 PM Result Value Ref Range Sed Rate 14 < OR = 30 mm/hr Vitamin B1 Level Collection Time: 11/17/21 2:35 PM Result Value Ref Range Vitamin B1 137 78 - 185 mmol/L Vitamin B12 Level Collection Time: 11/17/21 2:35 PM Result Value Ref Range Vitamin B12 Lvl 457 200 - 1100 pg/mL No MRI head results found for the past 12 months Assessment & PlanDiagnoses and all orders for this visit: Moderate dementia, unspecified dementia type, unspecified whether behavioral, psychotic, or mood disturbance or anxiety (HCC) Continue Aricept and Namenda 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 [id number] 13:03:22Upcoming Encounters Health Maintenance Due Date Last Done Comments Bone Density Scan 1945 Medicare Annual Wellness (AWV) 1945 Annual Physical 01/15/1947 DTaP/Tdap/Td Vaccines (1 - Tdap) 01/15/1963 Zoster Vaccines (1 of 2) 01/15/1994 Pneumococcal Vaccine: 65+ Years (1 of 1 - PCV) 01/15/2009 Respiratory Syncytial Virus (RSV) or >=60 (1 - 1-dose 75+ series) 01/15/2019 Influenza Vaccine (#1) 2023 Lipid Panel 08/04/2028 08/05/2023, 06/05/2023 HIB Vaccines Aged Out No longer eligi ble based on patient's age to complete this topic HPV Vaccines Aged Out No longer eligi ble based on patient's age to complete this topic Hepatitis A Vaccines Aged Out No long er eligible based on patient's age to complete this topic Hepatitis B Vaccines Aged Out No long er eligible based on patient's age to complete this topic IPV Vaccines Aged Out No longer eligi ble based on patient's age to complete this topic Meningococcal Vaccine Aged Out No arlyn iesha eligible based on patient's age to complete this topic Rotavirus Vaccines Aged Out No longer eligible based on patient's age to complete this topic [facility] [id number] 13:03:22 Diagnosis Moderate dementia, unspecifi ed dementia type, unspecified whether behavioral, psychotic, or mood disturbance or anxiety (HCC) - Primary [facility] [id number] 13:03:22 [facility] HospitalQyzlgak7791-68-85 13:03:22* [facility] HospitalVtmdwwr9457-02-39 13:03:22 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 On Namenda, no side effects. Does have some knee pain as well. No behavioral problems. On Aricept and Namenda Allergies as of 04/09/2024 - Reviewed 04/09/2024 Allergen Reaction Noted Codeine Nausea Only and GI intolerance 11/27/2018 Epinephrine 08/10/2023 Hydrocodone Nausea Only and GI intolerance 11/27/2018 Morphine Nausea Only and GI intolerance 11/27/2018 Sulfa antibiotics Other 11/27/2018 has a current medication list which includes the following prescription(s): alpha tocopherol, amlodipine, aspirin, bupropion xl, calcium acetate, carvedilol, vitamin d3, donepezil, ezetimibe, fluoxetine, hydrochlorothiazide, levothyroxine, losartan, magnesium oxide, memantine, montelukast, multiple vitamins-minerals, pramipexole, and rosuvastatin. Vitals:04/09/24 1152 BP: 121/61 Pulse: 64 Resp: 16 Temp: 36.5 ?C (97.7 ?F) SpO2: 94% Neurological Exam Mental Status Awake and alert. Speech is normal. Not year, month, day. 06/18 pictures. Cranial NervesCN II: Visual acuity is normal. CN III, IV, : Extraocular movements intact bilaterally. Pupils equal round and reactive to light bilaterally. CN VII: Full and symmetric facial movement. CN XII: Tongue midline without atrophy or fasciculations. MotorStrength is 5/5 throughout all four extremities. SensoryLight touch is normal in upper and lower extremities. Temperature is normal in upper and lower extremities. Vibration is normal in upper and lower extremities. ReflexesDeep tendon reflexes: Symmetric. GaitCasual gait is normal including stance, stride, and arm swing. Results for orders placed or performed in visit on 11/17/21 Copper Level Collection Time: 11/17/21 2:35 PM Result Value Ref Range Copper Lvl 108 70 - 175 mcg/dl Sedimentation Rate Collection Time: 11/17/21 2:35 PM Result Value Ref Range Sed Rate 14 < OR = 30 mm/hr Vitamin B1 Level Collection Time: 11/17/21 2:35 PM Result Value Ref Range Vitamin B1 137 78 - 185 mmol/L Vitamin B12 Level Collection Time: 11/17/21 2:35 PM Result Value Ref Range Vitamin B12 Lvl 457 200 - 1100 pg/mL No MRI head results found for the past 12 months Assessment & PlanDiagnoses and all orders for this visit: Moderate dementia, unspecified dementia type, unspecified whether behavioral, psychotic, or mood disturbance or anxiety (HCC) Continue Aricept and Namenda [employer]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 [id number] 13:03:22Upcoming Encounters Health Maintenance Due Date Last Done Comments Bone Density Scan 1945 Medicare Annual Wellness (AWV) 1945 Annual Physical 01/15/1947 DTaP/Tdap/Td Vaccines (1 - Tdap) 01/15/1963 Zoster Vaccines (1 of 2) 01/15/1994 Pneumococcal Vaccine: 65+ Years (1 of 1 - PCV) 01/15/2009 Respiratory Syncytial Virus (RSV) or >=60 (1 - 1-dose 75+ series) 01/15/2019 Influenza Vaccine (#1) 2023 Lipid Panel 08/04/2028 08/05/2023, 06/05/2023 HIB Vaccines Aged Out No longer eligi ble based on patient's age to complete this topic HPV Vaccines Aged Out No longer eligi ble based on patient's age to complete this topic Hepatitis A Vaccines Aged Out No long er eligible based on patient's age to complete this topic Hepatitis B Vaccines Aged Out No long er eligible based on patient's age to complete this topic IPV Vaccines Aged Out No longer eligi ble based on patient's age to complete this topic Meningococcal Vaccine Aged Out No arlyn iesha eligible based on patient's age to complete this topic Rotavirus Vaccines Aged Out No longer eligible based on patient's age to complete this topic [facility] [id number] 13:03:22 Diagnosis Moderate dementia, unspecifi ed dementia type, unspecified whether behavioral, psychotic, or mood disturbance or anxiety (HCC) - [facility] RockKxxicsl2661-79-72 13:03:22 [facility] RockWzaqsib9069-63-83 12:03:37* [facility] Vcgqjlo4476-31-01 12:03:37 [facility] RockJzfjpfr6960-84-05 12:03:37* Tavo Carver MD - 12/07/2023 11:30 AM CDT History of Present Illness Memory Loss Memory stable but problematic, still independent with basic ADLs. No side effects on the medication. Patient has moderate dementia. Weight is stable, no severe behavioral outbursts. Allergies as of 12/07/2023 - Reviewed 12/07/2023 Allergen Reaction Noted Codeine Nausea Only and GI intolerance 11/27/2018 Epinephrine 08/10/2023 Hydrocodone Nausea Only and GI intolerance 11/27/2018 Morphine Nausea Only and GI intolerance 11/27/2018 Sulfa antibiotics Other 11/27/2018 has a current medication list which includes the following prescription(s): alpha tocopherol, amlodipine, aspirin, bupropion xl, calcium acetate, carvedilol, vitamin d3, donepezil, ezetimibe, fluoxetine, hydrochlorothiazide, levothyroxine, losartan, magnesium oxide, memantine, montelukast, multiple vitamins-minerals, pramipexole, and rosuvastatin. Vitals:12/07/23 1128 BP: 124/63 Pulse: 61 Resp: 16 Temp: 36.3 ?C (97.3 ?F) SpO2: 96% Neurological Exam Mental Status Awake and alert. Speech is normal. Not year, month, day. / pictures. Cranial NervesCN II: Visual acuity is normal. CN III, IV, : Extraocular movements intact bilaterally. Pupils equal round and reactive to light bilaterally. CN VII: Full and symmetric facial movement. CN XII: Tongue midline without atrophy or fasciculations. MotorStrength is 5/5 throughout all four extremities. SensoryLight touch is normal in upper and lower extremities. Temperature is normal in upper and lower extremities. Vibration is normal in upper and lower extremities. ReflexesDeep tendon reflexes: Symmetric. GaitCasual gait is normal including stance, stride, and arm swing. Results for orders placed or performed in visit on 11/17/21 Copper Level Collection Time: 11/17/21 2:35 PM Result Value Ref Range Copper Lvl 108 70 - 175 mcg/dl Sedimentation Rate Collection Time: 11/17/21 2:35 PM Result Value Ref Range Sed Rate 14 < OR = 30 mm/hr Vitamin B1 Level Collection Time: 11/17/21 2:35 PM Result Value Ref Range Vitamin B1 137 78 - 185 mmol/L Vitamin B12 Level Collection Time: 11/17/21 2:35 PM Result Value Ref Range Vitamin B12 Lvl 457 200 - 1100 pg/mL No MRI head results found for the past 12 months Assessment & PlanDiagnoses and all orders for this visit: Moderate dementia, unspecified dementia type, unspecified whether behavioral, psychotic, or mood disturbance or anxiety (HCC) Has some renal dysfunction so no medication changes today, request labs for review I am the continuing focal point for needed health care services and medicalcare services that are part of ongoing care related to this patient's single, serious condition or complex condition. [facility] HospitalUkpcxvj8469-43-37 12:03:37Upcoming Encounters Health Maintenance Due Date Last Done Comments Bone Density Scan 1945 Medicare Annual Wellness (AWV) 1945 DTaP/Tdap/Td Vaccines (1 - Tdap) 01/15/1963 Zoster Vaccines (1 of 2) 01/15/1994 Respiratory Syncytial Virus (RSV) or >=60 (1 - 1-dose 60+ series) 2004 Pneumococcal Vaccine: 65+ Years (1 of 1 - PCV) 01/15/2009 Influenza Vaccine (#1) 2023 Lipid Panel 08/04/2028 08/05/2023, 06/05/2023 HIB Vaccines Aged Out No longer eligi ble based on patient's age to complete this topic HPV Vaccines Aged Out No longer eligi ble based on patient's age to complete this topic Hepatitis A Vaccines Aged Out No long er eligible based on patient's age to complete this topic Hepatitis B Vaccines Aged Out No long er eligible based on patient's age to complete this topic IPV Vaccines Aged Out No longer eligi ble based on patient's age to complete this topic Meningococcal Vaccine Aged Out No arlyn iesha eligible based on patient's age to complete this topic Rotavirus Vaccines Aged Out No longer eligible based on patient's age to complete this topic [facility] HospitalNthpthb8465-64-22 12:03:37 Diagnosis Moderate dementia, unspecifi ed dementia type, unspecified whether behavioral, psychotic, or mood disturbance or anxiety (HCC) - Primary [facility] HospitalShrebtk1186-28-47 12:03:37 [facility] HospitalNhceivr7957-55-09 14:37:54* [facility] HospitalCurwgtm5149-43-19 14:37:54 [facility] HospitalUdpqpeu0144-50-45 14:37:54Upcoming Encounters Health Maintenance Due Date Last Done Comments Medicare Annual Wellness (AWV) 1945 DTaP/Tdap/Td Vaccines (1 - Tdap) 01/15/1963 Zoster Vaccines (1 of 2) 01/15/1994 Respiratory Syncytial Virus (RSV) or >=60 (1 - 1-dose 60+ series) 2004 Pneumococcal Vaccine: 65+ Years (1 of 1 - PCV) 01/15/2009 Influenza Vaccine (#1) 2023 Lipid Panel 08/04/2028 08/05/2023, 06/05/2023 HIB Vaccines Aged Out No longer eligi ble based on patient's age to complete this topic HPV Vaccines Aged Out No longer eligi ble based on patient's age to complete this topic Hepatitis A Vaccines Aged Out No long er eligible based on patient's age to complete this topic Hepatitis B Vaccines Aged Out No long er eligible based on patient's age to complete this topic IPV Vaccines Aged Out No longer eligi ble based on patient's age to complete this topic Meningococcal Vaccine Aged Out No arlyn iesha eligible based on patient's age to complete this topic Rotavirus Vaccines Aged Out No longer eligible based on patient's age to complete this topic [facility] [id number] 14:37:54 [facility] HospitalJfccnst7548-66-81 13:05:31* [facility] HospitalRyrwgwf9520-20-22 13:05:31 [facility] HospitalMpngbyn6096-96-48 13:05:31* Tavo Carver MD - 08/10/2023 11:30 AM CDT Memory Loss Patient reports onset of memory loss was more than 1 year ago. Onset quality is gradual. Symptoms associated with memory loss include changes in short-term memory and repetitive questions. The family prepares medications. Patient lives with spouse. Patient lives in a/an house. Advised patient she shouldn't drive. Has noted occasional short tempered. On Aricept, add Namenda today. Allergies as of 08/10/2023 - Reviewed 08/10/2023 Allergen Reaction Noted Codeine Nausea Only and GI intolerance 11/27/2018 Epinephrine 08/10/2023 Hydrocodone Nausea Only and GI intolerance 11/27/2018 Morphine Nausea Only and GI intolerance 11/27/2018 Sulfa antibiotics Other 11/27/2018 has a current medication list which includes the following prescription(s): alpha tocopherol, amlodipine, aspirin, bupropion xl, calcium acetate, carvedilol, vitamin d3, donepezil, ezetimibe, fluoxetine, hydrochlorothiazide, levothyroxine, losartan, magnesium oxide, montelukast, multiple vitamins-minerals, pramipexole, and rosuvastatin. Vitals:08/10/23 1153 BP: 122/67 Pulse: 70 Resp: 16 Temp: 36.2 ?C (97.2 ?F) SpO2: 97% Neurological Exam Mental Status Awake and alert. Speech is normal. Oriented to state, towm Not year or month 5/6 pictures. Cranial NervesCN II: Visual acuity is normal. CN III, IV, : Extraocular movements intact bilaterally. Pupils equal round and reactive to light bilaterally. CN VII: Full and symmetric facial movement. CN XII: Tongue midline without atrophy or fasciculations. MotorStrength is 5/5 throughout all four extremities. SensoryLight touch is normal in upper and lower extremities. Temperature is normal in upper and lower extremities. Vibration is normal in upper and lower extremities. ReflexesDeep tendon reflexes: Symmetric. GaitCasual gait is normal including stance, stride, and arm swing. Results for orders placed or performed in visit on 11/17/21 Copper Level Result Value Ref Range Copper Lvl 108 70 - 175 mcg/dl Sedimentation Rate Result Value Ref Range Sed Rate 14 < OR = 30 mm/hr Vitamin B1 Level Result Value Ref Range Vitamin B1 137 78 - 185 mmol/L Vitamin B12 Level Result Value Ref Range Vitamin B12 Lvl 457 200 - 1100 pg/mL No MRI head results found for the past 12 months Assessment & PlanModerate dementia, unspecified dementia type, unspecified whether behavioral, psychotic, or mood disturbance or anxiety (HCC) Add Namenda 5 mg twice daily. Risks, benefits, side effects reviewed with patient. Cervical spondylosis Improved [facility] HospitalTbqjley0897-97-40 13:05:31Upcoming Encounters Health Maintenance Due Date Last Done Comments Medicare Annual Wellness (AWV) 1945 DTaP/Tdap/Td Vaccines (1 - Tdap) 01/15/1963 Zoster Vaccines (1 of 2) 01/15/1994 Respiratory Syncytial Virus (RSV) or >=60 (1 - 1-dose 60+ series) 2004 Pneumococcal Vaccine: 65+ Years (1 of 1 - PCV) 01/15/2009 Influenza Vaccine (Season Ended) 2023 Lipid Panel 08/04/2028 08/05/2023, 06/05/2023 HIB Vaccines Aged Out No longer eligi ble based on patient's age to complete this topic HPV Vaccines Aged Out No longer eligi ble based on patient's age to complete this topic Hepatitis A Vaccines Aged Out No long er eligible based on patient's age to complete this topic Hepatitis B Vaccines Aged Out No long er eligible based on patient's age to complete this topic IPV Vaccines Aged Out No longer eligi ble based on patient's age to complete this topic Meningococcal Vaccine Aged Out No arlyn iesha eligible based on patient's age to complete this topic Rotavirus Vaccines Aged Out No longer eligible based on patient's age to complete this topic [facility] HospitalRcrgrcn0350-28-34 13:05:31 Diagnosis Moderate dementia, unspecifi ed dementia type, unspecified whether behavioral, psychotic, or mood disturbance or anxiety (HCC) - Primary Cervical spondylosis Cervical spondylosis without myelopathy [facility] RockLwadvkz4151-86-49 13:05:31 [facility] Rockann
[2024-07-06] MEDS ORDERED: NA CHLORIDE 0.9% 1,000 ML ONE (11:39)
[2024-07-06] MEDS ORDERED: ONDANSETRON 4 MG/2 ML VIAL ONE (11:39)
[2024-07-06 11:56] LABS: Absolute Basophils 0.1 K/uL (0-0.5); Absolute Eosinophils 0.3 K/uL (0-0.5); Absolute Lymphocytes (CBC) 2.9 K/uL (0.7-4.9); Absolute Neutrophil 5.6 K/uL (1.8-8.0); Eosinophils % 2.7 % (0-4.4); Hematocrit 43.7 % (36.0-45.0); Lymphocytes % 29.1 % (15.3-44.8); MCH 32.1 pg (27.0-35.0); MCHC 34.4 g/dL (32.0-36.0); MCV 93.3 fL (80-100); MPV 8.7 fL (7.6-11.3); Monocytes % 10.5 % (3.3-12.3); Neutrophils % 56.7 % (41.7-73.7); Nucleated Red Blood Cells % 0.1 % (0-0); Platelets 240 thou/uL (152-406); RBC Red Blood Cell Count 4.68 M/uL (3.86-4.86); Red Cell Distribution Width 13.3 % (12.1-15.2)
[2024-07-06 12:13] LABS: Albumin 3.5 g/dL (3.4-5.0); Albumin/Globulin Ratio 0.8 (1.1-1.8); Anion Gap 10.2 mEq/L (5.0-15.0); Bilirubin Total 0.8 mg/dL (0.2-1.0); Globulin 4.5 g/dL (2.3-3.5); Potassium 4.2 mEq/L (3.5-5.1)
[2024-07-06 12:19] LABS: Specific Gravity > 1.030 (1.005-1.030); Transitional Epithelial <5 /HPF (None Seen); Urine Bacteria 20-50 /HPF (<20); Urine Bilirubin NEGATIVE (Negative); Urine Blood Negative (Negative); Urine Clarity Extremely Turbid (Clear); Urine Color Dark-Yellow (Yellow); Urine Culture Reflex Order REFLEXED; Urine Glucose NEGATIVE (Negative); Urine Ketones NEGATIVE (Negative); Urine Microscopic Reflex YN ORDER UMIC; Urine Mucus Slight /HPF (None Seen); Urine Nitrite NEGATIVE (Negative); Urine Protein TRACE (Negative); Urine RBC 21-50 /HPF (None Seen); Urine Urobilinogen Normal (Normal); Urine WBC >50 /HPF (<5); Urine WBC Clump Rare /HPF (None Seen)
--- NOTE | 2024-07-06 13:22 | RAD REPORT ---
EXAMINATION: Abdomen Pelvis Wo Contrast CLINICAL INDICATION: Female, 79 years old.ABD PAIN TECHNIQUE: CT abdomen and pelvis was performed, without IV contrast, as per department protocol. Axia l, sagittal and coronal reconstructions were obtained. One or more of the following dose reduction techniques were used: Automated exposure control, adjustment of the mA and/or kV according to the pat ient size, and/or iterative reconstruction. Unless otherwise specified, incidental findings do not require dedicated imaging follow-up. [id number]. IV CONTRAST: Not administered. COMPARISON: 10/01/2019 FINDINGS: The lack of intravenous contrast limits the sensitivity of this exam for evaluation of solid visceral organs, vascular structures, and retroperitoneum. LOWER CHEST: No acute process identified.No significant pericardial effusion. Moderate to large hiata l hernia. UPPER GI: No significant abnormality. LIVER: No significant focal abnormality. GALLBLADDER/BILE DUCTS: Cholelithiasis without CT evidence of acute cholecystitis.? PANCREAS: Atrophy but no acute findings. SPLEEN: Unremarkable. ADRENALS: No adrenal masses. KIDNEYS AND URETERS: No hydronephrosis.No suspicious renal mass.No renal calculi. ABDOMINAL AORTA AND OTHER VESSELS: Moderate atherosclerotic changes without aortic aneurysm. PERITONEUM: Increased peritoneal thickening along the sigmoid colon. LYMPH NODES: No pathologic lymphadenopathy. ABDOMINAL WALL: Small fat containing umbilical hernia. SMALL BOWEL/COLON: Increased thickening and stranding at the proximal to mid sigmoid colon. Moderate diverticulosis without diverticulitis. URINARY BLADDER: Underdistended but grossly unremarkable. REPRODUCTIVE ORGANS: No pathologic process. MUSCULOSKELETAL: No acute or suspicious osseous abnormality. ADDITIONAL FINDINGS: None. IMPRESSION: Inflammatory changes at the sigmoid colon probably representing nonperforated sigmoid diverticulitis, less likely short segment colitis.
[2024-07-06] MEDS ORDERED: CEFTRIAXONE 1000 MG/VIAL ONE (13:28)
[2024-07-06] MEDS ORDERED: metroNIDAZOLE 500 MG TABLET ONE (13:29)
--- NOTE | 2024-07-06 13:33 | EDPHYS ---
Physician Documentation [facility] Name: Naz Llanos Age: 79 yrs Sex: Female : 1945 Arrival Date: 07/06/2024 Time: 11:15 Bed 16 Private MD: ED Physician Haresh Sykes HPI: 07/06 11:37 This 79 yrs old Female presents to ER via Unassigned with complaints of dr5 Abdominal Pain. 11:37 The patient presents with abdominal pain in the left lower quadrant. Onset: The dr5 symptoms/episode began/occurred yesterday. Patient is an 79-year-old female coming in with left lower quadrant abdominal pain that started yesterday. Patient denies nausea, vomiting, diarrhea, or fever. Patient states her pain is constant in nature and describes it as a dull ache.. Historical: - Allergies: 11:29 Codeine; iw 11:29 Morphine; iw 11:29 EpiPen; iw - Immunization history:: Adult Immunizations up to date. - Infectious Disease History:: Denies. - Social history:: Smoking status: Patient denies any tobacco usage or history of. ROS: 11:37 Constitutional: as per hpi dr5 Exam: 11:37 Constitutional: This is a well developed, well nourished patient who is awake, alert, dr5 and in no acute distress. Head/Face: Normocephalic, atraumatic. ENT: Nares patent. No nasal discharge, no septal abnormalities noted. Tympanic membranes are normal and external auditory canals are clear. Oropharynx with no redness, swelling, or masses, exudates, or evidence of obstruction, uvula midline. Mucous membranes moist. Neck: Trachea midline, no thyromegaly or masses palpated, and no cervical lymphadenopathy. Supple, full range of motion without nuchal rigidity, or vertebral point tenderness. No Meningismus. Chest/axilla: Normal chest wall appearance and motion. Nontender with no deformity. No lesions are appreciated. Cardiovascular: Regular rate and rhythm with a normal S1 and S2. Normal PMI, no JVD. No pulse deficits. Abdomen/GI: Soft, non-tender, non-distended. No tenderness to palpation of left lower quadrant and not CVA tenderness appreciated bilaterally. Skin: Warm, dry with normal turgor. Normal color with no rashes, no lesions, and no evidence of cellulitis. MS/ Extremity: Pulses equal, no cyanosis. Neurovascular intact. Full, normal range of motion. Neuro: Awake and alert, GCS 15, oriented to person, place, time, and situation. Cranial nerves II-XII grossly intact. Motor strength 5/5 in all extremities. Sensory grossly intact. Cerebellar exam normal. Normal gait. Vital Signs: 11:28 BP 119 / 79; Pulse 70; Resp 18; Temp 98.2(O); Pulse Ox 96% ; Weight 81.65 kg; Height 5 iw ft. 6 in. ; 11:54 Pulse 66; Resp 18; Pulse Ox 99% on R/A; ld1 12:20 BP 108 / 63; Pulse 71; Resp 18; Pulse Ox 99% on R/A; ld1 13:52 BP 111 / 62; Pulse 74; Resp 18; Pulse Ox 100% on R/A; ld1 11:28 Body Mass Index 29.05 (81.65 kg, 167.64 cm) iw MDM: 11:20 Medical Screening Exam initiated dr5 14:07 Differential diagnosis: diverticulitis, gastritis, gastroesophageal reflux disease, dr5 Pyelonephritis, urinary tract infection. Data reviewed: vital signs, nurses notes, lab test result(s), radiologic studies, CT scan. I considered the following discharge prescriptions or medication management in the emergency department Medications were administered in the Emergency Department. See MAR. Historians other than the Patient: Parent: . Care significantly affected by the following Social Determinants of Health: Poor access to healthcare and/or lack of insurance, Poor access to transportation, Problems related to employment. 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 ED course: Patient is well-appearing and has uncomplicated diverticulitis. Patient also found to have urinary tract infection. Will cover for diverticulitis and urinary tract infection with ciprofloxacin and Flagyl. Patient is currently not an alcohol drinker. First dose of p.o. antibiotics given in ER. Patient's white blood cell count was normal and no evidence of perforation or complication noted on CT scan. Recommended patient follow-up primary care doctor this week and return to ER if pain continues or fever develops despite being on antibiotics. All questions answered. Recommended high-fiber diet.. 07/06 11:37 Order name: CBC with Diff; Complete Time: 12:22 [facility] 07/06 11:37 Order name: CMP; Complete Time: 12:22 [facility] 07/06 11:37 Order name: Lipase; Complete Time: 12:22 [facility] 07/06 11:37 Order name: UA Rfx Mikey Cult if indicated; Complete Time: 12:22 [facility] 07/06 12:24 Order name: Urine Culture [facility] 07/06 12:29 Order name: Abdomen ; Complete Time: 13:27 [facility] 07/06 11:37 Order name: IV Saline Lock; Complete Time: 11:47 [facility] 07/06 11:37 Order name: Labs collected and sent; Complete Time: 11:47 dr5 Administered Medications: 11:56 Drug: Ondansetron IVP 4 mg IVP once; over 2 minutes Route: IVP; Site: left antecubital; ld1 11:56 Drug: NS 0.9% IV 1000 ml IV at 1 bolus Per protocol; to be given as a bolus over 60 ld1 minutes Route: IV; Rate: 1 bolus; Site: left antecubital; 13:48 Not Given (Physician Discretion): rocephin1 grams IV at per protocol once; Given slow ld1 IV push per pharmacy instructions 13:51 Drug: Ciprofloxacin PO 500 mg PO once Route: PO; ld1 13:51 Drug: metroNIDAZOLE PO 500 mg PO once Route: PO; ld1 Disposition Summary: 07/06/24 13:33 Discharge Ordered Notes: Location: Home dr5 Condition: Stable dr5 Diagnosis - Diverticulitis of large intestine without perforation or abscess without bleeding dr5 Followup: dr5 - With: Emergency Department - When: As needed - Reason: Worsening of condition Followup: dr5 - With: Private Physician - When: 1 - 2 days - Reason: Recheck today's complaints, Continuance of care, Re-evaluation by your physician Discharge Instructions: - Discharge Summary Sheet dr5 - Diverticulitis dr5 - Urinary Tract Infection, Adult dr5 Forms: - Medication Reconciliation Form dr5 - Antibiotic Education dr5 - Patient Portal Instructions dr5 - Leadership Thank You Letter dr5 Prescriptions: - Flagyl 500 mg Oral Tablet - take 1 tablet ORAL route every 12 hours for 7 days; 14 tablet; Refills: 0, dr5 Product Selection Permitted - Cipro 500 mg Oral Tablet - take 1 tablet ORAL route every 12 hours for 7 days; 14 tablet; Refills: 0, dr5 Product Selection Permitted Addendum: 07/08/2024 12:34 Co-signature as Attending Physician, Haresh Sykes MD I agree with the assessment and c sutherland plan of care. Signatures: Dispatcher [employer] [facility] Hraesh Sykes MD MD cha Williams, Irene, RN RN iw Glo Patel RN RN ld1 Rome Leigh, WAD PRINTING MACHINE OPERATOR-C WAD PRINTING MACHINE OPERATOR-Cdr5 Corrections: (The following items were deleted from the chart) 07/06 12:29 11:37 Abdomen Pelvis W Con+CT.RAD.BRZ ordered. [facility]
--- NOTE | 2024-07-06 13:33 | ER ---
Nurse's Notes [facility] Name: Naz Llanos Age: 79 yrs Sex: Female : 1945 Arrival Date: 07/06/2024 Time: 11:15 Bed 16 Private MD: Diagnosis: Diverticulitis of large intestine without perforation or abscess without bleeding Presentation: 07/06 11:28 Chief complaint: Patient states: pain above left hip X 2 days. Risk Assessment: Do you iw want to hurt yourself or someone else? Patient reports no desire to harm self or others. 11:28 Acuity: SHENG 3 iw 13:52 Coronavirus screen: At this time, the client does not indicate any symptoms associated ld1 with coronavirus-19. Ebola Screen: No symptoms or risks identified at this time. Initial Sepsis Screen: Does the patient meet any 2 criteria? No. Patient's initial sepsis screen is negative. Does the patient have a suspected source of infection? No. Patient's initial sepsis screen is negative. Onset of symptoms was July 06, 2024. 13:52 Method Of Arrival: Ambulatory ld1 Triage Assessment: 13:52 General: Appears in no apparent distress. comfortable, Behavior is calm, cooperative, ld1 appropriate for age. Pain: Denies pain. EENT: No signs and/or symptoms were reported regarding the EENT system. Neuro: Level of Consciousness is awake, alert, obeys commands, Oriented to person, place, time, situation. Cardiovascular: Capillary refill < 3 seconds Patient's skin is warm and dry. Respiratory: Airway is patent Respiratory effort is even, unlabored. GI: Abdomen is round non-distended. : No signs and/or symptoms were reported regarding the genitourinary system. Historical: - Allergies: 11:29 Codeine; iw 11:29 Morphine; iw 11:29 EpiPen; iw - Immunization history:: Adult Immunizations up to date. - Infectious Disease History:: Denies. - Social history:: Smoking status: Patient denies any tobacco usage or history of. Screenin:54 [facility] ED Fall Risk Assessment (Adult) History of falling in the last 3 months, ld1 including since admission No falls in past 3 months (0 pts) Confusion or Disorientation No (0 pts) Intoxicated or Sedated No (0 pts) Impaired Gait No (0 pts) Mobility Assist Device Used No (0 pt) Altered Elimination No (0 pt) Score/Fall Risk Level 0 - 2 = Low Risk Oriented to surroundings, Hourly rounding (assess needs \T\ fall precautionary measures) done. Abuse screen: Denies threats or abuse. Denies injuries from another. Nutritional screening: No deficits noted. Tuberculosis screening: No symptoms or risk factors identified. Assessment: 11:54 General: Appears in no apparent distress. comfortable, Behavior is calm, cooperative, ld1 appropriate for age. Pain: Complains of pain in left lower quadrant Pain does not radiate. Pain currently is 3 out of 10 on a pain scale. Quality of pain is described as throbbing, Pain began suddenly, Is continuous. Neuro: Level of Consciousness is awake, alert, obeys commands, Oriented to person, place, time, situation. Cardiovascular: Capillary refill < 3 seconds Patient's skin is warm and dry. Respiratory: Airway is patent Respiratory effort is even, unlabored. GI: Abdomen is round non-distended, Bowel sounds present X 4 quads. Abd is soft Abd is non tender. GI: Reports lower abdominal pain. : No signs and/or symptoms were reported regarding the genitourinary system. EENT: No signs and/or symptoms were reported regarding the EENT system. Derm: No signs and/or symptoms reported regarding the dermatologic system. Musculoskeletal: No signs and/or symptoms reported regarding the musculoskeletal system. 12:20 Reassessment: Patient appears in no apparent distress at this time. No changes from ld1 previously documented assessment. Patient and/or family updated on plan of care and expected duration. Pain level reassessed. Patient is alert, oriented x 3, equal unlabored respirations, skin warm/dry/pink. 13:52 Reassessment: Patient appears in no apparent distress at this time. No changes from ld1 previously documented assessment. Patient and/or family updated on plan of care and expected duration. Pain level reassessed. Patient is alert, oriented x 3, equal unlabored respirations, skin warm/dry/pink. Vital Signs: 11:28 BP 119 / 79; Pulse 70; Resp 18; Temp 98.2(O); Pulse Ox 96% ; Weight 81.65 kg; Height 5 iw ft. 6 in. ; 11:54 Pulse 66; Resp 18; Pulse Ox 99% on R/A; ld1 12:20 BP 108 / 63; Pulse 71; Resp 18; Pulse Ox 99% on R/A; ld1 13:52 BP 111 / 62; Pulse 74; Resp 18; Pulse Ox 100% on R/A; ld1 11:28 Body Mass Index 29.05 (81.65 kg, 167.64 cm) iw ED Course: 11:19 Patient arrived in ED. ts1 11:19 Rome [facility]C [facility] 11:19 Haresh Sykes MD is Attending Physician. dr5 11:28 Triage completed. iw 11:44 Glo Patel, RN is Primary Nurse. ld1 11:47 UA Rfx Mikey Cult if indicated Sent. mb9 11:47 CBC with Diff Sent. mb9 11:47 CMP Sent. mb9 11:47 Lipase Sent. mb9 11:47 Initial lab(s) drawn, by me, sent to lab. Urine collected: clean catch specimen, clear. mb9 Inserted saline lock: 20 gauge in left forearm, using aseptic technique. Blood collected. Flushed with 10 mL NS. 11:54 Glo Patel, RN is Primary Nurse. ld1 11:54 No provider procedures requiring assistance completed. ld1 11:54 Patient has correct armband on for positive identification. Placed in gown. Bed in low ld1 position. Call light in reach. Side rails up X2. Pulse ox on. NIBP on. Door closed. Noise minimized. Warm blanket given. 13:04 Abdomen In Process Unspecified. EDMS 13:52 Arm band placed on right wrist. ld1 13:54 IV discontinued, intact, bleeding controlled, No redness/swelling at site. ld1 Administered Medications: 11:56 Drug: Ondansetron IVP 4 mg IVP once; over 2 minutes Route: IVP; Site: left antecubital; ld1 11:56 Drug: NS 0.9% IV 1000 ml IV at 1 bolus Per protocol; to be given as a bolus over 60 ld1 minutes Route: IV; Rate: 1 bolus; Site: left antecubital; 13:48 Not Given (Physician Discretion): rocephin1 grams IV at per protocol once; Given slow ld1 IV push per pharmacy instructions 13:51 Drug: Ciprofloxacin PO 500 mg PO once Route: PO; ld1 13:51 Drug: metroNIDAZOLE PO 500 mg PO once Route: PO; ld1 Medication: 11:54 VIS not applicable for this client. ld1 Outcome: 13:33 Discharge ordered by . dr5 13:52 Discharged to home ambulatory, ld1 13:52 Condition: stable 13:52 Discharge instructions given to patient, Instructed on discharge instructions, follow up and referral plans. Demonstrated understanding of instructions, follow-up care, medications, Prescriptions given X 2, 13:54 Patient left the ED. ld1 Signatures: Dispatcher [employer] EDMS Mattie Buenrostro RN RN iw Gol Patel RN RN ld1 Agustina Irizarry RN RN mb9 Jo Solis, PAS PAS ts1 Rome Leigh, SHRIMP BOAT CAPTAIN-C SHRIMP BOAT CAPTAIN-Cdr5 Corrections: (The following items were deleted from the chart) 11:29 11:28 Chief complaint: Patient states: pain above left hip X 2 days iw iw 11:29 11:28 Pulse 70bpm; Resp 18bpm; Pulse Ox 96%; 81.65 kg; Height 5 ft. 6 in.; BMI: 29.0; iwiw 11:29 11:28 Pulse 70bpm; Resp 18bpm; Pulse Ox 96%; Temp 98.2F Oral; 81.65 kg; Height 5 ft. 6 iw in.; BMI: 29.0; iw
[2024-07-06] MEDS ORDERED: CIPROFLOXACIN HCL 500 MG TAB ONE (13:36)
[2024-07-06 13:59] VITALS: TEMP 98.2
[2024-07-06 14:04] VITALS: BP 111/62; O2SAT 100
== END 2024-07-06 13:54 | disposition home or self-care (01) ==
LOC: ER 11:15
DX: K57.32 Diverticulitis of large intestine without perforation or abscess without bleeding (principal)
CPT/HCPCS: 87088; 85025; 81001; 87086; 36415; 83690; 80053; 74176; 96374; 99284; J2405; J7030; J0696